=== PATIENT | male | born 1960 | race Caucasian/White ===

== ENCOUNTER 2016-07-13 16:00 | Outpatient (CLI) | payer MEDICAID | END 2016-07-13 16:15 | disposition home or self-care (01) | DX: I49.9 Cardiac arrhythmia, unspecified (principal) ==

== ENCOUNTER 2016-08-15 | Outpatient (CLI) | payer MEDICAID | END 2016-08-15 10:40 | disposition critical access hospital (66) | DX: M54.5 Low back pain (principal) | CPT/HCPCS: A0425; A0429 ==

== ENCOUNTER 2016-08-15 10:55 | Emergency (ER) | payer MEDICAID ==
[2016-08-15] MEDS ORDERED: HYDROcod/ACETAM 5/325 MG TABLET PO STA (13:26)
[2016-08-15] MEDS ORDERED: KETOROLAC 60 MG/2 ML VIAL IM STA (13:26)
[2016-08-15] MEDS ORDERED: KETOROLAC 60 MG/2 ML VIAL ONE (13:38)
[2016-08-15] MEDS ORDERED: HYDROcod/ACETAM 5/325 MG TABLET ONE (13:38)
== END 2016-08-15 14:10 | disposition home or self-care (01) ==
DX: S39.012A Strain of muscle, fascia and tendon of lower back, initial encounter (principal); X50.0XXA Overexertion from strenuous movement or load, initial encounter; M54.5 Low back pain; I10 Essential (primary) hypertension; J45.909 Unspecified asthma, uncomplicated; J44.9 Chronic obstructive pulmonary disease, unspecified; K21.9 Gastro-esophageal reflux disease without esophagitis; Z86.718 Personal history of other venous thrombosis and embolism; Z87.891 Personal history of nicotine dependence
CPT/HCPCS: 20552; 96372; 99283; 99284; A9270

== ENCOUNTER 2016-08-28 14:16 | Emergency (ER) | payer MEDICAID ==
[2016-08-28] MEDS ORDERED: TRIAMCINOLONE 40 MG/ML VIAL IM STA (14:28)
[2016-08-28] MEDS ORDERED: HYDROcod/ACETAM 7.5 MG/325 MG TABLET PO STA (14:28)
[2016-08-28] MEDS ORDERED: KETOROLAC 60 MG/2 ML VIAL IM STA (14:28)
[2016-08-28] MEDS ORDERED: TRIAMCINOLONE 40 MG/ML VIAL ONE (14:28)
[2016-08-28] MEDS ORDERED: HYDROcod/ACETAM 5/325 MG TABLET ONE (14:32)
[2016-08-28] MEDS ORDERED: KETOROLAC 60 MG/2 ML VIAL ONE (14:32)
[2016-08-28] MEDS ORDERED: HYDROcod/ACETAM 5/325 MG TABLET PO STA (14:43)
== END 2016-08-28 15:11 | disposition home or self-care (01) ==
DX: M79.1 Myalgia (principal); M54.5 Low back pain; G89.29 Other chronic pain; I10 Essential (primary) hypertension; J44.9 Chronic obstructive pulmonary disease, unspecified; J45.909 Unspecified asthma, uncomplicated; K21.9 Gastro-esophageal reflux disease without esophagitis; Z86.718 Personal history of other venous thrombosis and embolism; Z87.891 Personal history of nicotine dependence
CPT/HCPCS: 20552; 96372; 99283; A9270

== ENCOUNTER 2016-10-19 20:15 | Outpatient (CLI) | payer MEDICAID | END 2016-10-19 20:16 | disposition critical access hospital (66) | DX: I46.9 Cardiac arrest, cause unspecified (principal) | CPT/HCPCS: A0425; A0433 ==

== ENCOUNTER 2016-10-19 20:27 | Inpatient (IN) | payer MEDICAID ==
[2016-10-19] MEDS ORDERED: IPRATROPIUM/ALBUTEROL 3 ML NEB INH ONE ×2 (20:33→20:34)
[2016-10-19] MEDS ORDERED: methylPREDNISolone SUCCINATE 125 MG/2 ML VIAL IVP ONE (20:37)
[2016-10-19] MEDS ORDERED: methylPREDNISolone SUCCINATE 125 MG/2 ML VIAL IVP STA (20:38)
[2016-10-19] MEDS ORDERED: IPRATROPIUM/ALBUTEROL 3 ML NEB INH STA ×2 (20:38→23:42)
[2016-10-19] MEDS ORDERED: LEVALBUTEROL 1.25 MG INH ONE (20:42)
[2016-10-19] MEDS: LEVALBUTEROL 1.25 MG INH PRN ×2 (20:50→21:23)
[2016-10-19] MEDS ORDERED: fentaNYL 100 MCG/2 ML VIAL ONE (20:50)
[2016-10-19] MEDS ORDERED: PROPOFOL 1000 MG/100 ML 100 ML IV ONE (20:50)
[2016-10-19] MEDS ORDERED: fentaNYL 100 MCG/2 ML VIAL IVP STA (21:17)
[2016-10-19] MEDS ORDERED: SODIUM CHLORIDE 0.9% 1,000 ML IV ONE (21:18)
[2016-10-19] MEDS ORDERED: ALBUTEROL NEB 2.5 MG/3 ML INH ONE (21:43)
[2016-10-19] MEDS: IPRATROPIUM/ALBUTEROL 3 ML NEB INH PRN (21:45)
[2016-10-19] MEDS ORDERED: PROPOFOL 1000 MG/100 ML 100 ML IV SCH (22:00)
[2016-10-19] MEDS ORDERED: ONDANSETRON 4 MG/2 ML VIAL IVP PRN (22:21)
[2016-10-19] MEDS ORDERED: SODIUM CHLORIDE FLUSH 0.9% 10 ML SYRINGE IVP PRN (22:21)
[2016-10-19] MEDS ORDERED: PROCHLORPERAZINE 10 MG/2 ML VIAL IVP PRN (22:21)
[2016-10-19] MEDS ORDERED: FORMOTEROL FUMARATE NEB 20 MCG/2 ML INH SCH (23:00)
[2016-10-19] MEDS: SODIUM CHLORIDE 0.9% 1,000 ML IV SCH (23:30)
[2016-10-19] MEDS ORDERED: LEVALBUTEROL 1.25 MG INH SCH ×2 (23:44→23:46)
[2016-10-19] MEDS ORDERED: SODIUM CHLORIDE INHALATION 3 ML NEB INH PRN ×2 (23:44→23:46)
[2016-10-20] MEDS: PROPOFOL 1000 MG/100 ML 100 ML IV SCH ×4 (00:18→11:56)
[2016-10-20] MEDS ORDERED: LEVALBUTEROL 1.25 MG INH SCH (01:00)
[2016-10-20] MEDS: IPRATROPIUM/ALBUTEROL 3 ML NEB INH PRN ×3 (01:25→14:49)
[2016-10-20] MEDS: ALBUTEROL NEB 2.5 MG/3 ML INH PRN ×3 (02:30→12:40)
[2016-10-20] MEDS: MORPHINE 2 MG/ML SYRINGE IVP PRN ×6 (03:54→22:57)
[2016-10-20] MEDS: methylPREDNISolone SUCCINATE 125 MG/2 ML VIAL IVP SCH ×2 (05:21→14:22)
[2016-10-20] MEDS ORDERED: SODIUM CHLORIDE FLUSH 0.9% 10 ML SYRINGE IVP SCH (06:00)
[2016-10-20] MEDS ORDERED: PANTOPRAZOLE 40 MG VIAL IVP SCH ×2 (07:00)
[2016-10-20] MEDS ORDERED: BUDESONIDE 0.5 MG/2 ML NEB INH SCH (07:00)
[2016-10-20] MEDS ORDERED: ENOXAPARIN 40 MG/0.4 ML SYRINGE SUBQ SCH (09:00)
[2016-10-20] MEDS ORDERED: CHLORHEXIDINE GLUCONATE 15 ML UDC PO SCH (09:00)
[2016-10-20] MEDS: SODIUM CHLORIDE 0.9% 1,000 ML IV SCH (10:16)
[2016-10-20] MEDS ORDERED: CALCIUM GLUCONATE 1,000 MG in SODIUM CHLORIDE 0.9% 50 ML IV ONE (12:45)
[2016-10-20] MEDS ORDERED: ATROPINE 1% OPHTH DROPS 2 ML SL PRN (20:13)
[2016-10-20] MEDS ORDERED: LORazepam 2 MG/ML SYRINGE IVP PRN (20:13)
[2016-10-20] MEDS ORDERED: CARBOXYMETHYLCELLULOSE OPHTH DROPS EACHEYE PRN (20:13)
[2016-10-20] MEDS ORDERED: PRAZOSIN 1 MG CAPSULE PO SCH (21:00)
[2016-10-20] MEDS ORDERED: SCOPOLAMINE PATCH TOP SCH (21:00)
[2016-10-21] MEDS: MORPHINE 2 MG/ML SYRINGE IVP PRN (00:01)
== END 2016-10-21 00:10 | disposition expired | DRG 208 ==
PROC: 5A1935Z Respiratory Ventilation, Less than 24 Consecutive Hours (ICD-10-PCS; principal; 2016-10-19)
DX: J96.22 Acute and chronic respiratory failure with hypercapnia (principal); J44.1 Chronic obstructive pulmonary disease with (acute) exacerbation; N17.9 Acute kidney failure, unspecified; G93.1 Anoxic brain damage, not elsewhere classified; E87.2 Acidosis; I46.9 Cardiac arrest, cause unspecified; J96.21 Acute and chronic respiratory failure with hypoxia; R40.2432 Glasgow coma scale score 3-8, at arrival to emergency department; E87.5 Hyperkalemia; I10 Essential (primary) hypertension; F31.9 Bipolar disorder, unspecified; F41.9 Anxiety disorder, unspecified; F43.10 Post-traumatic stress disorder, unspecified; M54.5 Low back pain; G89.29 Other chronic pain; K21.9 Gastro-esophageal reflux disease without esophagitis; Z66 Do not resuscitate; Z87.891 Personal history of nicotine dependence; Z86.718 Personal history of other venous thrombosis and embolism; Z87.01 Personal history of pneumonia (recurrent); Z85.51 Personal history of malignant neoplasm of bladder; Z78.1 Physical restraint status; Z99.81 Dependence on supplemental oxygen; Z59.0 Homelessness